=== PATIENT | male | born 1995 | race Caucasian/White ===

== ENCOUNTER 2018-01-27 13:00 | Day surgery (SDC) | payer MEDICARE ==
[~2018-01-27] VITALS: Ht 175.3 cm; Wt 68.0 kg
[~2018-01-27 13:00] MED LIST: CEFAZOLIN SOD 1 GM/ ISO 50 ML PREMIX IV ONE
[2018-01-27] MEDS ORDERED: LR 1,000 ML IV SCH (14:05)
[2018-01-27] MEDS ORDERED: METOCLOPRAMIDE HCL 10 MG/2 ML VIAL IVP PRN (14:15)
[2018-01-27] MEDS ORDERED: MORPHINE 4 MG/ML INJ. SYRINGE IVP PRN ×4 (14:15→14:30)
[2018-01-27] MEDS ORDERED: GLYCOPYRROLATE 0.2 MG/ML VIAL ONE (14:30)
[2018-01-27] MEDS ORDERED: ONDANSETRON HCL 4 MG/2 ML VIAL ONE (14:30)
[2018-01-27] MEDS ORDERED: SEVOFLURANE 15 MIN GAS INH ONE (14:30)
[2018-01-27] MEDS ORDERED: KETOROLAC TROMETHAMINE 30 MG VIAL ONE (14:30)
[2018-01-27] MEDS ORDERED: BUPIVACAINE /EPINEPHRINE/PF 0.25% 30 ML VIAL INJ ONE (14:30)
[2018-01-27] MEDS ORDERED: ROCURONIUM BROMIDE 10 MG/ML (ZEMURON) ONE (14:30)
[2018-01-27] MEDS ORDERED: ONDANSETRON HCL 4 MG/2 ML VIAL IVP PRN (14:30)
[2018-01-27] MEDS ORDERED: fentaNYL CITRATE/PF 100 MCG/2 ML AMP ONE (14:30)
[2018-01-27] MEDS ORDERED: LR 1,000 ML IV.SOLN IV ONE (14:30)
[2018-01-27] MEDS ORDERED: NEOSTIGMINE METHYLSULFATE 1 MG/ML, 10 ML VIAL ONE (14:30)
[2018-01-27] MEDS ORDERED: ACETAMINOPHEN/CODEINE 300 MG-30 MG TABLET PO PRN (14:30)
[2018-01-27] MEDS ORDERED: MIDAZOLAM HCL 5 MG/ML VIAL (VERSED) IV ONE (14:30)
[2018-01-27] MEDS ORDERED: PROPOFOL 200MG/ 20ML VIAL (DIPRIVAN) IV ONE (14:30)
[2018-01-27] MEDS ORDERED: MORPHINE 4 MG/ML INJ. SYRINGE ONE (14:45)
[2018-01-27] MEDS ORDERED: MORPHINE SULFATE 10 MG/ML VIAL ONE (15:40)
[2018-01-27] MEDS ORDERED: ACETAMINOPHEN/CODEINE 300 MG-30 MG TABLET ONE (15:54)
[2018-01-27 17:09] VITALS: BP_SYST 123
== END 2018-01-27 18:00 | disposition home or self-care (01) ==
LOC: EDSTATUS 13:00 → SDS 13:00
PROVIDERS: ATTEND Surgery
DX: K40.90 Unilateral inguinal hernia, without obstruction or gangrene, not specified as recurrent (principal)
CPT/HCPCS: 49505; 88302; C1781; J0690; J1885; J2250; J2270 ×2; J2405; J2704; J2710; J3010; J3490 ×2; J7120

== ENCOUNTER 2020-07-09 19:04 | Emergency (ER) | payer OTHER, BC ==
[~2020-07-09] VITALS: Ht 175.3 cm; Wt 65.8 kg
[2020-07-09 19:20] VITALS: BP_SYST 137
[2020-07-09 20:56] VITALS: BP_SYST 137
== END 2020-07-09 20:56 | disposition home or self-care (01) ==
LOC: SED 19:04
DX: S82.892A Other fracture of left lower leg, initial encounter for closed fracture (principal); V19.9XXA Pedal cyclist (driver) (passenger) injured in unspecified traffic accident, initial encounter; Y93.89 Activity, other specified; Y92.413 State road as the place of occurrence of the external cause; Y99.8 Other external cause status
CPT/HCPCS: 99283

== ENCOUNTER 2020-09-13 12:13 | Emergency (ER) | payer BC, OTHER ==
[~2020-09-13] VITALS: Ht 175.3 cm; Wt 68.0 kg
[2020-09-13 12:28] VITALS: BP_SYST 124
--- NOTE | 2020-09-13 12:28 | NUR ---
Patient to ER bed 7 to gown for evaluation. Side rails up. Report given to Sujey BAXTER.
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
--- NOTE | 2020-09-13 12:39 | NUR ---
ER Dr. Lopes at bedside examining patient.
--- NOTE | 2020-09-13 12:40 | NUR ---
Patient transported to radiology via wheelchair, accompanied by staff.
[2020-09-13] MEDS ORDERED: NAPR-688 PO (13:20)
--- NOTE | 2020-09-13 13:50 | NUR ---
Patient given written and verbal discharge instructions and verbalizes understanding. ER MD discussed with patient the results and treatment provided. Patient in stable condition. ID arm band removed. Rx of Naproxen given. Patient educated on pain management and to follow up with PMD. Pain Scale 0. Opportunity for questions provided and answered. Medication side effect fact sheet provided.
[2020-09-13 13:51] VITALS: BP_SYST 124
== END 2020-09-13 13:50 | disposition home or self-care (01) ==
LOC: SED 12:13
DX: S40.012A Contusion of left shoulder, initial encounter (principal); V87.8XXA Person injured in other specified noncollision transport accidents involving motor vehicle (traffic), initial encounter; Y93.89 Activity, other specified; Y92.89 Other specified places as the place of occurrence of the external cause; Y99.8 Other external cause status
CPT/HCPCS: 73030; 99283

== ENCOUNTER 2020-12-18 22:07 | Emergency (ER) | payer OTHER, BC ==
[~2020-12-18] VITALS: Ht 175.3 cm; Wt 70.3 kg
[~2020-12-18 22:07] MED LIST changes: -CEFAZOLIN SOD 1 GM/ ISO 50 ML PREMIX IV ONE; +NAPR-688 PO
[2020-12-18 22:15] VITALS: BP_SYST 121
[2020-12-18] MEDS ORDERED: NAPR-686 PO (23:13)
[2020-12-18] MEDS ORDERED: CYCL-10 PO (23:13)
[2020-12-18] MEDS ORDERED: IBUPROFEN 600 MG TABLET PO ONE (23:15)
[2020-12-18 23:24] VITALS: BP_SYST 121
== END 2020-12-18 23:24 | disposition home or self-care (01) ==
LOC: SED 22:07
DX: M46.1 Sacroiliitis, not elsewhere classified (principal); Z79.899 Other long term (current) drug therapy
CPT/HCPCS: 99283

== ENCOUNTER 2023-09-07 22:14 | Emergency (ER) | payer BC, OTHER ==
[~2023-09-07] VITALS: Ht 175.3 cm; Wt 68.0 kg
[~2023-09-07 22:14] MED LIST changes: +CYCL10TA24 PO; +NAPR-686 PO
[2023-09-07 22:20] VITALS: BP_SYST 119; PULSE 81; RESP 18; TEMP 97.9; O2SAT 99
[2023-09-07] MEDS ORDERED: CYCL10TA24 PO (23:20)
[2023-09-07] MEDS ORDERED: LIDO1ADH22 TP (23:20)
[2023-09-07] MEDS: CYCLOBENZAPRINE HCL 10 MG TABLET (FLEXERIL) PO ONE (23:22)
[2023-09-07] MEDS: LIDOCAINE PATCH 5% 1 EA TP ONE (23:22)
[2023-09-07] MEDS: KETOROLAC TROMETHAMINE 30 MG VIAL IM ONE (23:23)
[2023-09-07 23:28] VITALS: BP_SYST 136; PULSE 72; RESP 19; TEMP 98; O2SAT 98
== END 2023-09-07 23:46 | disposition home or self-care (01) ==
LOC: SED 22:14
DX: M54.50 Low back pain, unspecified (principal)
CPT/HCPCS: 99283; 96372; J1885